=== PATIENT | female | born 1955 | race Caucasian/White ===

== ENCOUNTER 2023-09-20 09:50 | Emergency (ER) | payer OTHER, SELFPAY ==
[2023-09-20 09:57] VITALS: BP 165/96
--- NOTE | 2023-09-20 10:56 | ED.GENMED ---
History of Present Illness
General
Chief Complaint: Back Pain
Source: patient
Exam Limitations: none
Time Seen by Provider: 09/20/23 10:44
Travel History
Have you had any contact with someone who has COVID-19?: No
Do you have any symptoms of coronavirus? Fever > 100 degrees, chills, cough, shortness of breath, sore throat, loss of taste or smell, muscle aches, or headache?: No
History of Present Illness
History of Present Illness:
68-year-old female with history of breast cancer osteopenia and on letrozole presents complaining of mid to lower back pain starting yesterday after stepping up a step. She remembers lifting a heavy dog crate several days ago. She denies any bowel
or bladder dysfunction. No perianal anesthesia. She is urinating well. The pain is right in the center of her back. No associated fever. No other complaints at this time
Phy Exam
Physical Exam
Physical Exam:
General: Well-appearing female no acute respiratory distress
HEENT: Normocephalic atraumatic
Musculoskeletal exam: Cervical spine nontender. She is slightly tender over the mid to lower thoracic spine as well as the upper lumbar spine over the midline.
Heart: Regular rate and rhythm no murmurs lungs: Clear no wheeze
Neurologic exam: Normal gait alert good strength to lower extremities
Course
Orders/Labs/Results
Orders:
Orders
09/20/23 10:55
CR Lumbar Spine 2 Or 3 Views Urgent
Comment:
Reason For Exam: low back pain
CR Thoracic Spine 3 Views Urgent
Comment:
Reason For Exam: mid back pain
09/20/23 10:59
Acetaminophen [Tylenol] 650 mg PO NOW STA
09/20/23 11:12
Acetaminophen [Tylenol] 650 mg .ROUTE .STK-MED ONE
Vital Signs
Initial and Last Documented VS:
Initial Vital Signs
Temp Pulse Resp BP Pulse Ox
98.1 F 94 18 165/96 95
09/20/23 09:57 09/20/23 09:57 09/20/23 09:57 09/20/23 09:57 09/20/23 09:57
Last Documented Vital Signs
Temp Pulse Resp BP Pulse Ox
98.1 F 94 18 165/96 95
09/20/23 09:57 09/20/23 09:57 09/20/23 09:57 09/20/23 09:57 09/20/23 09:57
MDM/Problems Addressed
Differential Diagnosis Includes:
Mid back pain. Question muscular strain versus compression fracture.
History of breast cancer and on medication that puts her at risk for bony injury.
Will order x-ray of thoracic and lumbar spine. Consider advanced if needed
Will treat symptoms with Tylenol.
*Critical Care Note
Total Time (30-74mins, 75-104mins- exclusive of procedures): Not Applicable
Update Note
Update Note:
X-rays of the thoracic and lumbar spine are negative for acute fracture. There is mild degenerative changes. Suspect muscular strain. No concerning findings for cauda equina. Will prescribe Tylenol with codeine and Robaxin. She has a
development coordinator she can follow-up with. Stable for discharge
ED Attending Note
-
Portions of this chart may have been created with voice recognition software.� Occasional wrong word or��sound alike� substitutions may have occurred due to the inherent limitations of voice recognition software.
Discharge Plan
Departure
Patient Disposition: Home (Routine Discharge)
Date of Disposition: 09/20/23
Time of Disposition: 12:18
Patient with high blood pressure during this ER visit?: No
Discharge Problem:
Back pain
Instructions: Low Back Pain (DC)
Prescriptions:
New
acetaminophen-codeine 300-30 mg tablet
1 tab PO Q8H PRN (Reason: Pain) Qty: 10 0RF
methocarbamol 750 mg tablet
750 mg PO Q8H PRN (Reason: spasm) Qty: 14 0RF
Referrals:
Denny Olguin MD [Family Provider] -
Activity Restrictions/Additional Instructions:
Use medicine as needed for pain or spasm. Use warm compresses. Avoid heavy lifting or twisting. Return if worse otherwise follow-up with your development coordinator as discussed
Interventions
Interventions:
*Risk Screen - Suicide Last Done: 09/20/23 09:57
*General Assessment Last Done: 09/20/23 11:23
*Neglect/Abuse Screening Last Done: 09/20/23 09:57
*ED COVID-19 Vaccine History Last Done: 09/20/23 09:57
ED-Musculoskeletal Assessment Last Done: 09/20/23 11:23
Discharge Date and Time
Print Language: MAURITIAN
[2023-09-20] MEDS: TYLENOL 650 MG PO (11:25)
[2023-09-20 12:31] VITALS: BP 129/76
== END 2023-09-20 12:50 | disposition home or self-care (01) ==
LOC: EMR 09:50
PROVIDERS: EMERGENCY PHYSICIAN Emergency Medicine; FAMILY PHYSICIAN Internal Medicine
DX: M54.50 Low back pain, unspecified (principal); X50.1XXA Overexertion from prolonged static or awkward postures, initial encounter
CPT/HCPCS: 99283; 72072; 72100